=== PATIENT | female | born 1995 | race Caucasian/White ===

== ENCOUNTER 2017-09-19 17:03 | Emergency (ER) | payer BC, MEDICAID ==
[~2017-09-19] VITALS: Ht 154.9 cm; Wt 70.8 kg
[2017-09-19 17:15] VITALS: Ht 154.9 cm; Wt 70.8 kg
[2017-09-19 19:03] VITALS: BP 120/70
== END 2017-09-19 19:03 | disposition home or self-care (01) ==
LOC: ED 17:03
DX: Z48.01 Encounter for change or removal of surgical wound dressing (principal)

== ENCOUNTER 2017-09-21 23:04 | Emergency (ER) | payer BC, MEDICAID ==
[~2017-09-21] VITALS: Ht 154.9 cm; Wt 70.8 kg
[2017-09-21 23:18] VITALS: BP 124/80; Ht 154.9 cm; Wt 70.8 kg
== END 2017-09-22 00:05 | disposition home or self-care (01) ==
LOC: ED 23:04
DX: Z48.01 Encounter for change or removal of surgical wound dressing (principal)

== ENCOUNTER 2020-06-10 15:42 | Emergency (ER) | payer MEDICAID ==
[~2020-06-10] VITALS: Ht 154.9 cm; Wt 58.1 kg
[2020-06-10 15:54] VITALS: Ht 154.9 cm; Wt 58.1 kg
[2020-06-10 16:58] VITALS: BP 106/59
== END 2020-06-10 16:58 | disposition home or self-care (01) ==
LOC: ED 15:42
DX: S01.312A Laceration without foreign body of left ear, initial encounter (principal); W22.8XXA Striking against or struck by other objects, initial encounter; Y93.89 Activity, other specified; Y92.89 Other specified places as the place of occurrence of the external cause; Y99.8 Other external cause status

== ENCOUNTER 2020-06-19 15:45 | Emergency (ER) | payer OTHER, MEDICAID ==
[~2020-06-19] VITALS: Ht 154.9 cm; Wt 58.5 kg
[2020-06-19 16:04] VITALS: BP 107/78; Ht 154.9 cm; Wt 58.5 kg
[2020-06-19] MEDS ORDERED: ULTRAM50 MG PO (16:52)
[2020-06-19] MEDS ORDERED: NAPROXEN375 MG PO (16:52)
[2020-06-19] MEDS ORDERED: SOMA350 MG PO (16:52)
== END 2020-06-19 17:02 | disposition home or self-care (01) ==
LOC: ED 15:45
DX: S16.1XXA Strain of muscle, fascia and tendon at neck level, initial encounter (principal); S29.012A Strain of muscle and tendon of back wall of thorax, initial encounter; H72.92 Unspecified perforation of tympanic membrane, left ear; V49.49XA Driver injured in collision with other motor vehicles in traffic accident, initial encounter; Y93.I9 Activity, other involving external motion; Y92.413 State road as the place of occurrence of the external cause; Y99.8 Other external cause status